=== PATIENT | female | born 1935 | race Caucasian/White ===

== ENCOUNTER 2017-10-31 11:35 | Outpatient (RCR) | payer MEDICARE ==
[2017-02-01 11:45] VITALS: BP 113/66
[~2017-10-31 11:35] MED LIST: ALB6.7R INH; ALEN1TAB3 PO; ALEN70TA43 PO; AZI250 PO; AZIT-101 FT; BP MED; CALC-475 PO; CALCIUM PO; CYC10 PO; DAR100 PO; DEN60I SUBQ; DIOVAN; DOC100 PO; KET10 PO; LEVO50TA80 PO; LOS50 PO; LOSARTAN PO; MAX75 PO; OXYGEN INH; PER PO; POTA-28 PO; PRAM0.2524 PO; PRE20 PO; PRED-314 PO; THYROID PILL; VAL80 PO; ZIA10 PO; [UNRECOGNIZED DRUG - CODE] PO; [UNRECOGNIZED DRUG - CODE] PO; [UNRECOGNIZED DRUG - REMARK]; [UNRECOGNIZED DRUG - REMARK]
[2017-10-31] MEDS ORDERED: DENOSUMAB 60 MG/1 ML SYR SUBQ ONE (12:05)
== END 2017-11-01 08:21 | disposition home or self-care (01) ==
LOC: SPU 11:35
PROVIDERS: ATTEND Family Medicine
DX: M81.0 Age-related osteoporosis without current pathological fracture (principal)
CPT/HCPCS: 96372; J0897